=== PATIENT | male | born 1990 | race Caucasian/White ===

== ENCOUNTER 2017-08-06 13:27 | Emergency (ER) | payer OTHER ==
[~2017-08-06] VITALS: Ht 193 cm; Wt 129.3 kg
--- NOTE | 2017-08-06 14:16 | Emergency Room Report ---
History of Present Illness General Chief Complaint: Upper Extremity Injury Source: Patient Present Illness HPI 27-year-old male patient presents ER complaining of left wrist pain since yesterday. Reports that his playing baseball appointment time for a ball and hurt his left wrist. Reports right-hand dominant. Reports swelling and pain in hand worsening since yesterday. Denies hitting head or loss of consciousness. Denies other acute symptoms. Allergies: Coded Allergies: No Known Allergies (Unverified , 08/06/17) Patient History Past Medical History: see triage record Reviewed Nursing Documentation: PMH: Agreed; PSxH: Agreed Nursing Documentation-PMH Past Medical History: No Stated History Review of Systems All Other Systems: negative except mentioned in HPI Physical Exam Vital Signs Date Time Temp Pulse Resp B/P (MAP) Pulse Ox O2 Delivery O2 Flow Rate FiO2 08/06/17 13:35 98.2 80 18 132/71 98 Room Air 98.2 Sp02 EP Interpretation: reviewed, normal General Appearance: well appearing, no apparent distress, alert, GCS 15, non- toxic Head: normocephalic, atraumatic ENT: hearing grossly normal, normal pharynx, no angioedema, normal voice, uvula midline, moist mucus membranes Respiratory: lungs clear, normal breath sounds, no rhonchi, no respiratory distress, no accessory muscle use, no wheezing, speaking full sentences Cardiovascular #1: regular rate, rhythm, no edema Cardiovascular #2: 2+ radial (R), 2+ radial (L) Musculoskeletal: back normal, digits/nails normal, gait/station normal, decreased range of motion - wrist, swelling - left hand and wrist, other - snuffbox tenderness, tender Skin: no rash Medical Decision Making PA Attestation Dr. Solorzano is my supervising Physician whom patient management has been discussed with. Diagnostic Impression: Primary Impression: Scaphoid fracture of wrist ER Course Pt. presents to the ED c/o left wrist pain. Ddx considered but are not limited to fracture, sprain, strain, contusion, dislocation. No erythema, no warmth to touch, no fever, nontoxic appearing, low suspicion for septic joint. no digits, no flexor tenderness to palpation, low suspicion for flexor tenosynovitis. Vital signs: are WNL, pt. is afebrile Ordered X-ray and pain medication. ER COURSE Provided with pain medication. An X-ray of the left wrist negative for acute disease and dislocation per the initial reading. Spoke with radiologist on the phone, informed him of snuffbox tenderness, no dislocation or scaphoid fracture present. However due to snuffbox tenderness will treat as scaphoid fracture. Patient placed in the thumb spica splint. Instructed on need for repeat imaging in 1 week. swelling and pain may also be related to possible ligament injury. Patient seen and evaluated by Dr. Solorzano, who agrees with assessment and treatment plan. Splint was applied to the left hand and was checked afterwards by me showing good alignment and support with distal neurovascular functioning intact. Patient instructed on RICE method: rest, ice, compression, elevation. Patient instructed on rest, ice and heat. Patient instructed to be NWB. avoid physical activity to prevent further injury. Work/School note provided. Followup with primary care provider. Discuss referral to ortho/pain management/ PT as needed. Discuss further imaging with MRI/CT as needed. provided with information for orthopedic urgent care, patient unable to follow- up with primary care provider and get further referral to follow up with urgent care or return to ER for repeat imaging. DISCHARGE: -Rx provided for Ibuprofen for pain symptoms. -Rx provided for Methocarbamol. SE drowsiness, do not drink, drive, or operate heavy machinery while using. At this time pt. is stable for d/c to home. Patient is resting comfortably, in no acute distress, nontoxic appearing, talking without difficulty. Will provide printed patient care instructions, and any necessary prescriptions. Patient instructed to follow with primary care provider in 3 - 5 days and to request further follow-up as needed. Care plan and follow up instructions have been discussed with the patient prior to discharge. Take medications as directed. Patient questions asked and answered. Patient reports understanding and agreement to treatment plan. ER precautions given, patient instructed to return to ER immediately for any new or worsening of symptoms. - Please note that this Emergency Department Report was dictated using [employer] office repairer supervisor technology software, occasionally this can lead to erroneous entry secondary to interpretation by the dictation equipment. Other X-Ray Diagnostic Results Other X-Ray Diagnostic Results : X-Ray ordered: left wrist # of Views/Limited Vs Complete: 3 View Indication: Pain EP Interpretation: Yes PA Xray: Interpretation reviewed, by supervising MD, and agrees with findings. Interpretation: no dislocation, no fractures, other - soft tissue swelling Impression: No acute disease PA Scribdionte Text Ivan Guevara PA-C Last Vital Signs Date Time Temp Pulse Resp B/P (MAP) Pulse Ox O2 Delivery O2 Flow Rate FiO2 08/06/17 13:35 98.2 80 18 132/71 98 Room Air 98.2 Disposition: HOME, SELF-CARE Condition: Stable Scripts Methocarbamol* (ROBAXIN*) 500 Mg Tablet 500 MG PO TID, #21 TAB 0 Refills Prov: Francisco Guevara 08/06/17 Ibuprofen* (MOTRIN*) 800 Mg Tablet 800 MG ORAL Q8H, #30 TAB 0 Refills Prov: Francisco Guevara 08/06/17 Patient Instructions: Scaphoid Fracture, Wrist, Wrist Sprain Additional Instructions: Patient instructed to follow up with primary care provider 2-3 days and discuss further referral to orthopedics. Needs repeat imaging in 5-7 days. Patient instructed on RICE method: rest, ice, compression, elevation. Patient instructed to NWB. Take medications as directed. SE drowsiness: do not take prior to drinking, driving, or operating heavy machinery. Patient questions asked and answered. ER precautions given, patient instructed to return to ER immediately for any new or worsening of symptoms. Francisco Guevara Aug 06, 2017 14:16
[2017-08-06 14:42] VITALS: BP 132/71
--- NOTE | 2017-08-06 14:59 | Diagnostic Imaging Report ---
Indication: Pain left wrist pain Findings: 3 views of the left wrist were obtained. No acute fractures, malalignment, erosions or periostitis are identified. Soft tissue swelling noted. Impression: No acute fracture.
[2017-08-06] MEDS ORDERED: IBUPROFEN800 MG ORAL (15:22)
[2017-08-06] MEDS ORDERED: ROBAXIN500 MG PO (15:22)
[2017-08-06 16:20] VITALS: BP 130/70
== END 2017-08-06 16:22 | disposition home or self-care (01) ==
LOC: EMR 14:02
DX: S62.002A Unspecified fracture of navicular [scaphoid] bone of left wrist, initial encounter for closed fracture (principal); X58.XXXA Exposure to other specified factors, initial encounter; Y93.64 Activity, baseball; Y92.9 Unspecified place or not applicable
CPT/HCPCS: 99284